=== PATIENT | female | born 1975 | race Caucasian/White ===

== ENCOUNTER 2016-09-15 07:08 | Emergency (ER) | payer MEDICAID, OTHER ==
[~2016-09-15] VITALS: Ht 162.6 cm; Wt 120.0 kg
[~2016-09-15 07:08] MED LIST: Z.0.NO CURRENT MEDS
[2016-09-15 07:09] VITALS: BP 167/85; PULSE 92; RESP 20; TEMP 97.9; O2SAT 96
[2016-09-15] MEDS ORDERED: MOTR200T4 PO (07:28)
[2016-09-15] MEDS ORDERED: BENA25CA4 (07:28)
--- NOTE | 2016-09-15 07:36 | PD ---
HPI Chief Complaint: Cold / Flu Symptoms Time Seen by Provider: 07:25 Travel History International Travel<30 days: No Contact w/Intl Traveler<30days: No Traveled to known affect area: No History of Present Illness HPI 41-year-old female presents for evaluation. For the past week she's had a cough , congestion, sinus pressure, myalgias and a sore throat. She reports that she has several members of her family sick with similar symptoms. No rashes, abdominal pain, recent travel. She has been using [id number] cough and cold medications with minimal symptom relief. She has no other complaints at this time. Her primary care physician is Dr. Samson. ON LICENSE OF [facility] Past Medical History Depression: Yes Diminished Hearing: No Reproductive: Yes (ENDOMETRIOSIS) Tubal Ligation: Yes (1998) Past Surgical History Cholecystectomy: Yes (2006) Social History Alcohol Use: No Tobacco Use: No Substance Use: No Allergies-Medications (Allergen,Severity, Reaction): Coded Allergies: Ciprofloxacin (Verified Allergy, Severe, 09/15/16) Dilaudid (Verified Allergy, Severe, 09/15/16) Fluconazole (Verified Allergy, Severe, 09/15/16) Lisinopril (Verified Allergy, Severe, 09/15/16) Morphine (Verified Allergy, Severe, 09/15/16) Oxycodone (Verified Allergy, Severe, HIVES, 10/12/11) Sulfa (Verified Allergy, Severe, 09/15/16) Tramadol (Verified Allergy, Severe, 09/15/16) Uncoded Allergies: ANESTESIA (Allergy, Severe, HIVES/ITHCING, 01/03/08) MICROBID (Allergy, Severe, HIVES, 01/03/08) MICROSTAT (Allergy, Severe, HIVES, 01/03/08) Reported Meds & Prescriptions Reported Meds & Active Scripts Active Reported Motrin Ib (Ibuprofen) 200 Mg Tab 800 Mg PO Q4H PRN Benadryl Allergy (Diphenhydramine HCl) 25 Mg Cap 50 DIRECTED Review of Systems Except as stated in HPI: all other systems reviewed are Neg Physical Exam Narrative GENERAL: Well-developed well-nourished female in no acute distress SKIN: Warm and dry. HEAD: Atraumatic. Normocephalic. EYES: Pupils equal and round. No scleral icterus. No injection or drainage. ENT: No nasal bleeding or discharge. Mucous membranes pink and moist. Tympanic membranes reveal normal anatomic landmarks. No oropharyngeal erythema or exudate. NECK: Trachea midline. No JVD. No lymphadenopathy. Neck supple full range of motion. CARDIOVASCULAR: Regular rate and rhythm. No murmur appreciated. RESPIRATORY: No accessory muscle use. Clear to auscultation. Breath sounds equal bilaterally. GASTROINTESTINAL: Abdomen soft, non-tender, nondistended. Hepatic and splenic margins not palpable. MUSCULOSKELETAL: No obvious deformities. NEUROLOGICAL: Awake and alert. No obvious cranial nerve deficits. Motor grossly within normal limits. Normal speech. Data Data Last Documented VS Vital Signs Date Time Temp Pulse Resp B/P Pulse Ox O2 Delivery O2 Flow Rate FiO2 09/15/16 07:09 97.9 92 20 167/85 96 Room Air Orders Influenzae A/B Antigen (09/15/16 07:33) Pseudoephedrine (Sudafed) (09/15/16 08:30) Acetaminophen (Tylenol) (09/15/16 08:30) MDM Medical Decision Making Medical Screen Exam Complete: Yes Emergency Medical Condition: Yes Medical Record Reviewed: Yes Differential Diagnosis Rhinosinusitis, influenza, bronchitis, pharyngitis, pneumonia Narrative Course 41-year-old female with 1 week of sinus pressure and nasal congestion, cough, sore throat. Influenza antigen antigen test was performed and it was negative. Her symptoms are consistent with sinusitis. She is being treated with Augmentin and Flonase. She requested something for symptom relief while here. She was given Tylenol and Sudafed. Diagnosis Primary Impression: Acute rhinosinusitis Departure Forms: Tests/Procedures, Work Release Enter return to work date: Sep 17, 2016 Additional Instructions: Medication as prescribed. Use [id number] nasal decongestants for symptom relief. Take Tylenol or Motrin for discomfort. Stay well hydrated and well- nourished. Return for any emergent medical conditions. Med/Other Pt SpecificInfo: Prescription(s) given Scripts Fluticasone Nasal [place] (Flonase Nasal [place])50 Mcg/Act Spray50 Mcg EACH NARE BID #1 BOTTLE Ref 0 Prov:Keaton Swenson MD 09/15/16 Amoxicillin-Clavulanate (Augmentin)875-125 mg [id number] Mg PO BID 10 Days Ref 0 not for use in CrCl <30 ml/min. Prov:Keaton Swenson MD 09/15/16 Disposition: 01 DISCHARGE HOME Condition: Stable Ramón Mendoza Sep 15, 2016 07:36
[2016-09-15] MEDS ORDERED: AUGM875T PO (08:24)
[2016-09-15] MEDS ORDERED: FLUT1SPR5 EACH NARE (08:24)
[2016-09-15] MEDS ORDERED: ACETAMINOPHEN 325 MG TAB PO ONE (08:30)
[2016-09-15] MEDS ORDERED: PSEUDOEPHEDRINE HCL 30 MG TAB PO ONE (08:30)
== END 2016-09-15 08:44 | disposition home or self-care (01) ==
LOC: NEPB 07:08
DX: J01.90 Acute sinusitis, unspecified (principal)
CPT/HCPCS: 87804; 99283

== ENCOUNTER 2017-01-20 22:32 | Emergency (ER) | payer MEDICAID, OTHER ==
[~2017-01-20] VITALS: Ht 167.6 cm; Wt 99.0 kg
[~2017-01-20 22:32] MED LIST changes: +AUGM875T PO; +BENA25CA4; +FLUT1SPR5 EACH NARE; +MOTR200T4 PO; -Z.0.NO CURRENT MEDS
[2017-01-20 22:35] VITALS: BP 150/68; PULSE 96; RESP 18; TEMP 99.8; O2SAT 99
[2017-01-20] MEDS ORDERED: IBUP800T23 PO (23:01)
--- NOTE | 2017-01-20 23:01 | PD ---
HPI Chief Complaint: Back/ Neck Pain or Injury Time Seen by Provider: 22:45 Travel History International Travel<30 days: No Contact w/Intl Traveler<30days: No Traveled to known affect area: No History of Present Illness HPI 41-year-old white female presents to emergency department with complaints of lower back pain. She states that she woke up this morning with pain in her left lower back with radiation into her left leg. She also states that she's had increased urinary frequency and some lower pelvic pressure. She denies any urine or stool incontinence. He denies any focal numbness, tingling or weakness. She states the pain is worse when he bends and moves. She is some relief with remaining still. She has had back pain in the past but has no recent injury. PFSH Past Medical History Depression: Yes Diminished Hearing: No Reproductive: Yes (ENDOMETRIOSIS) Tetanus Vaccination: < 5 Years Tubal Ligation: Yes (1998) Past Surgical History Cholecystectomy: Yes (2006) Social History Alcohol Use: No Tobacco Use: No Substance Use: No Allergies-Medications (Allergen,Severity, Reaction): Coded Allergies: Ciprofloxacin (Verified Allergy, Severe, 01/20/17) Dilaudid (Verified Allergy, Severe, 01/20/17) Fluconazole (Verified Allergy, Severe, 01/20/17) Lisinopril (Verified Allergy, Severe, 01/20/17) Morphine (Verified Allergy, Severe, 01/20/17) Oxycodone (Verified Allergy, Severe, HIVES, 01/20/17) Sulfa (Verified Allergy, Severe, 01/20/17) Tramadol (Verified Allergy, Severe, 01/20/17) Uncoded Allergies: ANESTESIA (Allergy, Severe, HIVES/ITHCING, 01/03/08) MICROBID (Allergy, Severe, HIVES, 01/03/08) MICROSTAT (Allergy, Severe, HIVES, 01/03/08) Reported Meds & Prescriptions Reported Meds & Active Scripts Active Flexeril (Cyclobenzaprine HCl) 10 Mg Tab 10 Mg PO TID Diclofenac Sodium DR (Diclofenac Sodium) 75 Mg Tabdr 75 Mg PO BID Reported Ibuprofen 800 Mg Tab 800 Mg PO QID Benadryl Allergy (Diphenhydramine HCl) 25 Mg Cap 50 DIRECTED Review of Systems Except as stated in HPI: all other systems reviewed are Neg General / Constitutional: No: Fever, Chills HENT: No: Headaches, Sore Throat Cardiovascular: No: Chest Pain or Discomfort, Tachycardia Respiratory: No: Cough, Shortness of Breath Gastrointestinal: No: Nausea, Vomiting, Abdominal Pain Genitourinary: Positive: Frequency, Pelvic Pain (lower pelvic pressure), No: Dysuria Musculoskeletal: Positive: Limited ROM, Cramping, Pain (lower back pain on the left) Physical Exam Narrative GENERAL: Well-developed, well-nourished in no acute distress. Nontoxic appearing. HEAD: Normocephalic, atraumatic. EYES: Pupils equal round and reactive. Extraocular motions intact. No scleral icterus. No injection or drainage. ENT: TMs clear without erythema. The external auditory canals clear. Nose: clear . Posterior pharynx is pink and moist. No tonsillar edema or exudate. Uvula midline. Airway patent. NECK: Trachea midline.Supple, nontender, moves head freely. No central bony tenderness or spasm. CARDIOVASCULAR: Regular rate and rhythm without murmurs, gallops, or rubs. RESPIRATORY: Clear to auscultation. Breath sounds equal bilaterally. No wheezes , rales, or rhonchi. GASTROINTESTINAL: Abdomen soft, non-tender, nondistended. No hepato-splenomegaly , or palpable masses. No guarding. EXTREMITIES: No clubbing, cyanosis, or edema. No joint tenderness, effusion, or edema noted. BACK: No central bony tenderness to palpation of dorsal lumbar spine. Patient has left paralumbar tenderness into the left buttocks. She is able to heel and toe stand. She is able to flex forward at 90. No saddle anesthesia. Without deformity or crepitance. No flank tenderness. Patient has intact sensation distally with good pulses. No gross spasm. Data Data Last Documented VS Vital Signs Date Time Temp Pulse Resp B/P Pulse Ox O2 Delivery O2 Flow Rate FiO2 01/20/17 22:35 99.8 96 18 150/68 99 Orders Urinalysis - C+S If Indicated (01/20/17 22:45) Naproxen (Naprosyn) (01/20/17 23:45) Cyclobenzaprine (Flexeril) (01/20/17 23:45) Labs Laboratory Tests Test 01/20/17 23:01 Urine Color YELLOW Urine Turbidity HAZY Urine pH 5.5 Urine Specific [place] 1.028 Urine Protein TRACE mg/dL Urine Glucose (UA) NEG mg/dL Urine Ketones TRACE mg/dL Urine Occult Blood NEG Urine Nitrite NEG Urine Bilirubin NEG Urine Urobilinogen LESS THAN 2.0 MG/DL Urine Leukocyte Esterase TRACE Urine RBC 1 /hpf Urine WBC 1 /hpf Urine Squamous Epithelial 13 /hpf Cells Urine Bacteria OCC /hpf Urine Mucus MANY /lpf Microscopic Urinalysis Comment CULT NOT INDICATED MDM Medical Decision Making Medical Screen Exam Complete: Yes Emergency Medical Condition: Yes Medical Record Reviewed: Yes Interpretation(s) Laboratory Tests Test 01/20/17 23:01 Urine Color YELLOW Urine Turbidity HAZY Urine pH 5.5 Urine Specific [place] 1.028 Urine Protein TRACE mg/dL Urine Glucose (UA) NEG mg/dL Urine Ketones TRACE mg/dL Urine Occult Blood NEG Urine Nitrite NEG Urine Bilirubin NEG Urine Urobilinogen LESS THAN 2.0 MG/DL Urine Leukocyte Esterase TRACE Urine RBC 1 /hpf Urine WBC 1 /hpf Urine Squamous Epithelial 13 /hpf Cells Urine Bacteria OCC /hpf Urine Mucus MANY /lpf Microscopic Urinalysis Comment CULT NOT INDICATED Differential Diagnosis MDM: High Differential diagnoses: AAA,Fracture, sprain, strain, HNP, nerve or vascular injury, epidural abscess, pilonidal cyst, pyelonephritis, UTI, nephrolithiasis, ureterolithiasis Narrative Course Urinalysis is negative. Patient's given Naprosyn 500 and Flexeril 10 mg by mouth. This is left lower back pain with sciatica Diagnosis Primary Impression: acute left lower back pain with sciatica Patient Instructions: General Instructions Departure Forms: Tests/Procedures, Work Release Special Instructions: No work 3 days. Additional Instructions: Rest. Ice for the next 3 days followed by heat . Flexeril and Voltaren. Follow-up with a primary care doctor in one week. Return to the ER for emergencies. Med/Other Pt SpecificInfo: Prescription(s) given Scripts Cyclobenzaprine (Flexeril)10 Mg Tab10 Mg PO TID #30 TAB Prov:Yesenia Lehman MD 01/20/[address] 75 Mg Tabdr75 Mg PO BID #20 TAB Prov:Yesenia Lehman MD 01/20/17 Disposition: 01 DISCHARGE HOME Condition: Stable Benigno Moncada Jan 20, 2017 23:01
[2017-01-20 23:37] LABS: BACTERIA, URINE OCC /hpf; BLOOD, URINE NEG (NEG); GLUCOSE,URINE NEG (NEG); KETONE, URINE TRACE mg/dL (NEG); MUCUS URINE MANY /lpf (OCC); NITRITE,URINE NEG (NEG); PH, URINE 5.5 (5.0-8.5); SQUAMOUS EPITHELIAL CELL URINE 13 /hpf (0-5); URINE COLOR YELLOW (YELLW/STRAW)
[2017-01-20] MEDS ORDERED: DICL75TA PO (23:45)
[2017-01-20] MEDS ORDERED: CYCL1TAB29 PO (23:45)
[2017-01-20] MEDS ORDERED: CYCLOBENZAPRINE HCL 10 MG TAB PO ONE (23:45)
[2017-01-20] MEDS ORDERED: NAPROXEN 500 MG TAB PO ONE (23:45)
[2017-01-21 00:05] LABS: COMMENT (UR) CULT NOT INDICATED; CULTURE IF INDICATED CULT NOT INDICATED
== END 2017-01-21 00:23 | disposition home or self-care (01) ==
LOC: NEPK 22:32
DX: M54.42 Lumbago with sciatica, left side (principal); R35.0 Frequency of micturition; R10.2 Pelvic and perineal pain; Z86.59 Personal history of other mental and behavioral disorders; Z87.42 Personal history of other diseases of the female genital tract
CPT/HCPCS: 81001; 99284